=== PATIENT | female | born 1975 | race Caucasian/White ===

== ENCOUNTER 2021-11-25 12:14 | Emergency (ER) | payer OTHER ==
[2021-11-25 12:32] VITALS: BP 147/87; PULSE 78; TEMP 98.6; BMI 23.6
[2021-11-25] MEDS ORDERED: KETOROLAC TROMETHAMINE 30 MG/1 ML VIAL IM ONE (13:01)
[2021-11-25] MEDS ORDERED: KETOROLAC TROMETHAMINE 30 MG/1 ML VIAL ONE (13:15)
== END 2021-11-25 15:11 | disposition home or self-care (01) ==
LOC: FER 12:14
PROC: 3E0233Z Introduction of Anti-inflammatory into Muscle, Percutaneous Approach (ICD-10-PCS; principal; 2021-11-25)
DX: S80.912A Unspecified superficial injury of left knee, initial encounter (principal); W00.0XXA Fall on same level due to ice and snow, initial encounter
CPT/HCPCS: 73560-TC-LT-FY; 99284-25